=== PATIENT | female | born 1965 | race Two or more races ===

== ENCOUNTER 2018-11-23 17:22 | Emergency (ER) | payer MEDICAID ==
[~2018-11-23] VITALS: Ht 154.9 cm; Wt 59.0 kg
[2018-11-23 17:49] VITALS: BP 180/116
[2018-11-23] MEDS ORDERED: cefTRIAXone SOD 1,000 MG VL IM ONE (19:15)
[2018-11-23] MEDS ORDERED: methylPREDNISolone SOD SUCC 125 MG/2 ML VL IM ONE (19:15)
[2018-11-23] MEDS ORDERED: LIDOCAINE 1% HCL (LOCAL ANESTH.) INJ 20ML MDV ONE (19:34)
[2018-11-23] MEDS ORDERED: ACETAMINOPHEN/CODEINE#3 (300/30mg) TAB PO ONE (19:45)
[2018-11-23] MEDS ORDERED: amLODIPine BESYLATE 5 MG TAB PO ONE (19:45)
== END 2018-11-23 20:12 | disposition home or self-care (01) ==
LOC: ER 17:22
DX: J40 Bronchitis, not specified as acute or chronic (principal)
CPT/HCPCS: 96372; 99283; J0696; J2001; J2930